=== PATIENT | male | born 1960 | race Caucasian/White ===

== ENCOUNTER 2023-08-04 10:38 | Emergency (ER) | payer SELFPAY ==
[2023-08-04 10:50] VITALS: BP 154/96; PULSE 65; RESP 18; TEMP 36.5; O2SAT 96; BMI 39.5
== END 2023-08-04 11:26 | disposition left against medical advice (07) ==
LOC: ER 11:31
PROVIDERS: Emergency Provider Emergency Medicine Emergency Medical Services
DX: Z53.21 Procedure and treatment not carried out due to patient leaving prior to being seen by health care provider (principal)

== ENCOUNTER 2023-08-04 14:01 | Emergency (ER) | payer BC, SELFPAY ==
[2023-08-04 14:09] VITALS: BP 141/87; PULSE 85; RESP 18; TEMP 36.8; O2SAT 97; BMI 39.5
--- NOTE | 2023-08-04 14:23 | ED.ABDPAIN1 ---
HPI - Abdominal Pain General Chief Complaint: Abdominal Pain Stated Complaint: ABDOMINAL PAIN Time Seen by Provider: 08/04/23 14:09 Source: patient Mode of arrival: walk-in Limitations: no limitations History of Present Illness HPI narrative: patient here is abdominal pain. He says his been off-and-on for the last two days. He is a little concerned that his Crohn's disease is flaring up. It's been many many many years since he's had an attack. He does not have fever shakes chills. Does not have joint pain myalgias or any other systemic problems today. He's not seen any blood in his stool. His bowel movements have been slightly loose but not diarrhea. He's not had nausea or vomiting. He is not on any antibiotics. No history trauma or injury. Past surgical history includes appendectomy. He's had both upper and lower scopes and he has no history of diverticular disease that he is aware of he's not had any polyps. He's not been on any steroids for many many years. Related Data Home Medications Medication Instructions Recorded Confirmed acetaminophen 300 mg-codeine 15 mg 1 tab PO Q24H 08/04/23 08/04/23 tablet celecoxib 200 mg capsule 200 mg PO Q24H 08/04/23 08/04/23 hyoscyamine sulfate 0.125 mg tablet 0.125 mg PO Q8H 08/04/23 08/04/23 lisinopril 10 mg tablet 10 mg PO Q24H 08/04/23 08/04/23 ondansetron HCl 4 mg tablet 4 mg PO PRN 08/04/23 08/04/23 Allergies Allergy/AdvReac Type Severity Reaction Status Date / Time No Known Drug Allergies Allergy Verified 08/04/23 10:46 PFSH PFS Social History Smoking status: Former smoker Exam Narrative Exam Narrative: awake alert afebrile does not appear to uncomfortable. Skin is warm and dry with no evidence of petechiae purpura or rash. HEENT shows no evidence of pallor or scleral icterus. Abdomen he is overweight but bowel sounds are present and are normal. There is no guarding rebound rigidity or peritoneal findings with normal bowel sounds are noted. Slight discomfort noted on the left mid and left lower abdomen. Constitutional Vital Signs, click to edit/add: Last Vital Signs Temp 98.3 F 08/04/23 14:09 Pulse 85 08/04/23 14:09 Resp 18 08/04/23 14:09 BP 141/87 08/04/23 14:09 Pulse Ox 97 08/04/23 14:09 Course Vital Signs Vital signs: Vital Signs Temperature 98.3 F 08/04/23 14:09 Pulse Rate 85 08/04/23 14:09 Respiratory Rate 18 08/04/23 14:09 Blood Pressure 141/87 08/04/23 14:09 Pulse Oximetry 97 08/04/23 14:09 Temperature 98.3 F 08/04/23 14:09 Pulse Rate 85 08/04/23 14:09 Respiratory Rate 18 08/04/23 14:09 Blood Pressure 141/87 08/04/23 14:09 Pulse Oximetry 97 08/04/23 14:09 MDM - Abdominal Pain MDM Narrative Medical decision making narrative: a CT scan with contrast was done and is consistent with inflammatory changes of the bowel. There is no indication of diverticulitis. His white blood cell count is also normal. I believe the patient's clinical history and findings lab and CT are most consistent with an inflammatory condition as opposed to infectious. This was discussed with the patient. He will need close follow-up with his primary care doctor. We will place him on prednisone. Once again he felt that it his symptoms feel the same as when he had the Crohn's flareup. Discharge Plan Discharge Chief Complaint: Abdominal Pain Clinical Impression: Abdominal pain Patient Disposition: Home, Self-Care Time of Disposition Decision: 16:07 Prescriptions / Home Meds: No Action acetaminophen-codeine 300-15 mg tablet 1 tab PO Q24H celecoxib 200 mg capsule 200 mg PO Q24H hyoscyamine sulfate 0.125 mg tablet 0.125 mg PO Q8H lisinopril 10 mg tablet 10 mg PO Q24H ondansetron HCl 4 mg tablet 4 mg PO PRN Additional Instructions: prednisone//clear diet for the next 24-36 hours/return if symptoms worsen or develop a fever Stand Alone Forms: Portal Instructions Referrals: Physician,Non-Staff, MD [Primary Care Provider] - 1 week
--- NOTE | 2023-08-04 14:25 | CT_ITS ---
[address] [address] Patient Name: WILTON BOYER MRN: [id number] date: 1960 Sex: M Assigned Patient Location: ER Current Patient Location: ER Accession/Order Number: [id number] Exam Date: 08/04/2023 15:20 Report Date: 08/04/2023 15:58 At the request of: ARTEM LEON Procedure: CT abdomen pelvis w con EXAM: CT abdomen pelvis w con HISTORY: abdominal pain diverticulitis versus Crohn's COMPARISON: None. TECHNIQUE: CT abdomen pelvis w con FINDINGS: LOWER CHEST: LUNG BASES / PLEURA: 0.5 cm in nodule in the left lower lobe (image 9 of series 3). DISTAL ESOPHAGUS: Small sliding hiatal hernia. HEART / VESSELS: No significant abnormality. ABDOMEN and PELVIS: LIVER: Normal. BILIARY TRACT: Normal. GALLBLADDER: Absent. PANCREAS: Normal. SPLEEN: Numerous hypoattenuating lesions throughout the spleen. ADRENALS: Normal. KIDNEYS: Right upper pole simple renal cyst. Additional small hypoattenuating lesions of both kidneys are too small to further characterize but also likely represent simple renal cysts. LYMPH NODES: None enlarged. STOMACH / SMALL BOWEL: A few mildly thickened small bowel loops are noted in the left hemiabdomen. COLON / APPENDIX: The colon is collapsed diffusely but is relatively hyperemic. The appendix is normal. PERITONEUM / MESENTERY: Mild central mesenteric haziness. RETROPERITONEUM: Normal. VESSELS: Mild atherosclerotic disease of the abdominal aorta and its major branches. URINARY BLADDER: Normal. REPRODUCTIVE ORGANS: No abnormality. BODY WALL: Small fat-containing inguinal and umbilical hernias. MUSCULOSKELETAL: No significant abnormality. CT/CT abdomen pelvis w con IMPRESSION: 1. There are a few mildly thickened small bowel loops in the left hemiabdomen, a nonspecific appearance which can be seen with enteritis, likely infectious or inflammatory. 2. The colon is diffusely hyperemic, which can be seen with mild colitis. However, the colon is diffusely collapsed and is otherwise not inflamed in appearance. Clinical correlation is recommended. 3. Numerous hypoattenuating lesions in the spleen, a nonspecific appearance. The differential includes granulomatous disease, infection, lymphoma, or metastasis. 4. Pulmonary nodule in the left lower lobe measuring 0.5 cm. Per Fleischner criteria, this does not warrant follow-up imaging unless the patient is deemed high risk, in which case an optional CT at 12 months can be performed if clinically indicated. Electronically authenticated by: CHAYO MCCORMICK Date: 08/04/2023 15:58
[2023-08-04 15:05] LABS: Anion Gap 10.7; BUN Creatinine Ratio 13.1; Calcium 8.8 mg/dL (8.5-10.1); Carbon Dioxide 28.4 mmol/L (21.0-32.0); Chloride 103 mmol/L (98-107); Estimated GFR (African America >60 (>=60); Estimated GFR (Non-African Ame >60 (>=60); Glucose 120 mg/dL (74-106); Hematocrit 42.1 % (42.0-54.0); Hemoglobin 13.5 g/dL (14.0-18.0); Mean Corpuscular HGB Conc 32.1 g/dL (29.9-35.2); Mean Corpuscular Hemoglobin 27.9 pg (25.9-34.0); Platelet Count 214 10^3/uL (150-450); Potassium 4.1 mmol/L (3.5-5.1); Red Blood Count 4.84 10^6/uL (4.70-6.10); Red Cell Distribution Width 13.3 % (11.0-15.0); Sodium 138 mmol/L (136-145); White Blood Count 7.5 10^3/uL (4.0-11.0)
[2023-08-04 15:53] LABS: Atypical Lymphocytes Abs Man 0.9; Lymphocytes Absolute Manual 1.95 10^3/uL (1.20-3.80); Segmented Neut Absolute Manual 4.35 10^3/uL (1.4-6.5)
[2023-08-04 16:26] VITALS: BP 134/92; PULSE 72; RESP 14; TEMP 36.6; O2SAT 96
== END 2023-08-04 16:35 | disposition home or self-care (01) ==
PROVIDERS: Emergency Provider Emergency Medicine Emergency Medical Services
DX: R10.9 Unspecified abdominal pain (principal); Z90.49 Acquired absence of other specified parts of digestive tract; Z79.899 Other long term (current) drug therapy; Z87.891 Personal history of nicotine dependence; K50.90 Crohn's disease, unspecified, without complications
CPT/HCPCS: 36415; 74177; 80048; 85027; 99283; Q9967